=== PATIENT | male | born 1985 | race Caucasian/White ===

== ENCOUNTER 2024-10-26 15:28 | Emergency (ER) | payer BC, OTHER ==
--- OUTSIDE RECORDS SUMMARY | 2024-10-26 15:40 | XMS REPORT | Continuity of Care Document ---
Author Name Unknown Address [address] [place] [address] [address] [place] [address] [facility] Address [address] [facility] [address] [place] [address] Care Team Providers Care General Magistrate Name Role Phone PCP, PATIENT DOES NOT HAVE A Primary Care Physic emir STEVE Kaba Attending Clinician STEVE Pretty Attending Clinician Shankar Murray MD Attending Clinician [phone] Unknown, Attending Attending Clinician SHANKAR Brady Attending Clinician Unavailable Doctor Unassigned, [place] Attending Clinician U navailable Payers Payer Name Policy Type Policy Number Effective Date Expirati on Date Source Allergies, Adverse Reactions, Alerts Allergy Name Allergy Type Status Severity Reaction(s) Onset Date Inactive Date Treating Clinician Comments Source PENICILL IN DRUG INGREDI Active High Rash 2022-03 00:00: 00 [facility] Penicill in Propensi ty to adverse reaction s Active Rash 2022-03 00:00: 00 [facility] NO KNOWN ALLERGIE S Drug Class Active [facility] Social History Social Habit Start Date Stop Date Quantity Comments Source Sexual orientation U [facility] Sex Assigned At 1985 00:00:00 1985 00:00:00 [facility] Smoking Status Start Date Stop Date Source Tobacco smoking consumption unknown [facility] Immunizations Ordered Immunization Name Filled Immunization Name Date Status Comments Source SARS-COV-2 COVID-19 PFIZER VACCINE Unknown Completed [facility] SARS-COV-2 COVID-19 PFIZER VACCINE Unknown Completed [facility] SARS-COV-2 COVID-19 PFIZER VACCINE Unknown Completed [facility] Vital Signs Vital Name Observation Time Observation Value Comments S ource Systolic blood pressure 2023-03-10 22:26:00 134 mm[Hg] [facility] Diastolic blood pressure 2023-03-10 22:26:00 84 mm[Hg] [facility] Heart rate 2023-03-10 22:25:00 [facility] Body temperature 2023-03-10 22:25:00 36.89 Carissa [facility] Respiratory rate 2023-03-10 22:25:00 20 /min [facility] Body height 2023-03-10 22:25:00 175.3 cm [facility] Body weight 2023-03-10 22:25:00 64.955 kg [facility] BMI 2023-03-10 22:25:00 21.15 kg/m2 [facility] Oxygen saturation in Arterial blood by Pulse oximetry 2023-03-10 22:25:00 98 /min [facility] Procedures Procedure Date / Time Performed Performing Clinicia n Source XR HAND 3+ VW RIGHT 2023-03-10 22:52:20 Shankar Agudelo [facility] ASSIGNMENT OF BENEFITS 2023-03-10 22:14:52 Docto r Unassigned, [place] [facility] Encounters Start Date/Time End Date/Time Encounter Type Admission Type Attending Clinicians Care Facility Care Department Encounter ID Source 2023-03-10 16:39:35 2023-03-10 23:59:00 Hospital Encounter Shankar Agudelo [facility] [id number] [facility] 2023-03-10 16:10:00 2023-03-10 16:50:31 Urgent Care Shankar Agudelo, Attending [facility] [id number] [facility] 2023-03-10 16:10:00 2023-03-10 16:50:31 Outpatient R SHANKAR AGUDELO [facility] [id number] [facility] 2023-03-10 00:00:00 2023-03-10 00:00:00 Orders Only Doctor Unassigned, [place] [facility] [id number] [facility] Notes Date/Time Note Provider Source 2023-03-10 16:10:00 Addended by: SHANKAR AGUDELO MD on: 03/11/2023 11:57 AM Modules accepted: Orders [facility]
[2024-10-26] MEDS ORDERED: LORazepam 2 MG/ML VIAL ONE (15:55)
[2024-10-26] MEDS ORDERED: NA CHLORIDE 0.9% 1,000 ML ONE (15:56)
[2024-10-26 15:58] LABS: Absolute Lymphocytes (CBC) 1.2 K/uL (0.7-4.9); Hematocrit 43.4 % (39.6-49.0); Hemoglobin 15.0 g/dL (13.6-17.9); MCH 32.4 pg (27.0-35.0); MCHC 34.5 g/dL (32.0-36.0); MCV 93.9 fL (80-100); MPV 8.5 fL (7.6-11.3); Nucleated RBC Absolute Count 0.0 (0-0); Nucleated Red Blood Cells % 0.1 % (0-0); RBC Red Blood Cell Count 4.62 M/uL (4.33-5.43); White Blood Count 6.40 thou/uL (4.3-10.9)
[2024-10-26 16:16] LABS: ALT/SGPT 33.0 U/L (16-61); AST/SGOT 31.0 U/L (15-37); Alkaline Phosphatase 68.0 U/L (45-117); Anion Gap 15.4 mEq/L (5.0-15.0); BUN Blood Urea Nitrogen 18.0 mg/dL (7-18); Glucose Level 130.0 mg/dL (74-106); Potassium 3.4 mEq/L (3.5-5.1)
[2024-10-26 16:17] LABS: Albumin 3.9 g/dL (3.4-5.0); Albumin/Globulin Ratio 1.2 (1.1-1.8); Globulin 3.2 g/dL (2.3-3.5)
--- NOTE | 2024-10-26 16:35 | EDPHYS ---
Physician Documentation [facility] Name: Fede Little Age: 39 yrs Sex: Male : 1985 Arrival Date: 10/26/2024 Time: 15:28 Bed 15 Private MD: ED Physician Dawson Bai HPI: 10/26 16:34 This 39 yrs old Male presents to ER via EMS with complaints of Heat Exposure. 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 Patient states he began having some cramps, then issues with breathing. EMS notes patient was sweating, breathing rapidly, with carpal spasms on their arrival. Heart rate was found to be 166 with a blood pressure 170/106. Patient's glucose was found to be 158 with a temperature of 98. EMS administered 700 mL of normal saline. On evaluation patient denies pain. Patient denies any alleviating or inciting factors.. Historical: - Allergies: 15:49 No Known Allergies; me1 - Home Meds: 15:49 None [Active]; me1 - PMHx: 15:49 None; me1 - PSHx: 15:49 None; me1 - Immunization history:: Adult Immunizations up to date. - Infectious Disease History:: Denies. - Social history:: Smoking status: Patient denies any tobacco usage or history of. ROS: 16:34 Constitutional: Negative for fever, and chills. Cardiovascular: Negative for chest ms3 pain, and palpitations. Respiratory: Negative for shortness of breath, cough, wheezing, and pleuritic chest pain, Abdomen/GI: Negative for abdominal pain, nausea, vomiting, diarrhea, and constipation, 16:34 MS/extremity: Positive for Carpal spasms, 16:34 Skin: Positive for diaphoresis, Exam: 16:34 Constitutional: This is a well developed, well nourished patient who is awake, alert, ms3 and in no acute distress. Cardiovascular: Regular rate and rhythm with a normal S1 and S2. No gallops, murmurs, or rubs. Normal PMI, no JVD. No pulse deficits. Respiratory: Lungs have equal breath sounds bilaterally, clear to auscultation and percussion. No rales, rhonchi or wheezes noted. No increased work of breathing, no retractions or nasal flaring. Abdomen/GI: Soft, non-tender, with normal bowel sounds. No distension or tympany. No guarding or rebound. No evidence of tenderness throughout. 16:34 Neuro: Awake and alert, GCS 15, oriented to person, place, time, and situation. Cranial nerves II-XII grossly intact. Motor strength 5/5 in all extremities. Sensory grossly intact. Cerebellar exam normal. Normal gait. 16:34 Musculoskeletal/extremity: Carpal spasm present in right hand. 16:34 Skin: Appearance: diaphoresis is noted, Vital Signs: 15:40 BP 131 / 84; Pulse 104; Resp 19; Temp 98.3; Pulse Ox 100% ; Weight 68.04 kg; Height 5 me1 ft. 6 in. ; Pain 0/10; 16:00 BP 120 / 96; Pulse 99; Resp 16; Pulse Ox 100% ; me1 15:40 Body Mass Index 24.21 (68.04 kg, 167.64 cm) me1 15:40 Pain Scale: Adult me1 MDM: 15:39 Medical Screening Exam initiated ms3 16:34 Differential Diagnosis Hypokalemia versus hypocalcemia versus heat exhaustion versus ms3 anxiety. Data reviewed: vital signs, nurses notes, lab test result(s), and as a result, I will discharge patient. I considered the following discharge prescriptions or medication management in the emergency department Medications were administered in the Emergency Department. See MAR. Counseling: I had a detailed discussion with the patient and/or guardian regarding the historical points, exam findings, and any diagnostic results supporting the discharge/admit diagnosis, lab results, the need for outpatient follow up, to return to the emergency department if symptoms worsen or persist or if there are any questions or concerns that arise at home. Special discussion: I discussed with the patient/guardian in detail that at this point there is no indication for admission to the hospital. It is understood, however, that if the symptoms persist or worsen the patient needs to return immediately for re-evaluation. ED course: Discussed possible dehydration apparent and elevated creatinine on lab with the patient. Patient states he typically takes 5 bottles of water to last him the entire day. Discussed drinking substances with electrolytes and increasing fluid intake with patient. Patient understands and agrees with plan. All questions were answered. Return precautions discussed include worsening symptoms, or any other concerns. Patient to follow-up with primary care physician in 2 to 3 days.. 10/26 15:40 Order name: CBC with Diff; Complete Time: 16:19 ms3 10/26 15:40 Order name: CMP; Complete Time: 16:19 ms3 10/26 15:40 Order name: CK; Complete Time: 16:19 ms3 10/26 15:40 Order name: IV; Complete Time: 15:54 ms3 Administered Medications: 15:59 Drug: NS 0.9% IV 1000 ml IV at 1 bolus Per protocol; to be given as a bolus over 60 me1 minutes Route: IV; Rate: 1 bolus; Site: left antecubital; 16:48 Follow up: Response: No adverse reaction; IV Status: Completed infusion; IV Intake: me1 1000ml 15:59 Drug: Ativan IVP 1 mg IVP once Route: IVP; Site: left antecubital; me1 16:29 Follow up: Response: No adverse reaction; Anxiety decreased me1 Disposition Summary: 10/26/24 16:34 Discharge Ordered Notes: Location: Home ms3 Condition: Stable ms3 Diagnosis - Dehydration ms3 - Elevated blood pressure ms3 Followup: ms3 - With: Cisco Mccloud DO - When: 2 - 3 days - Reason: Recheck today's complaints Forms: - Medication Reconciliation Form ms3 - Antibiotic Education ms3 - Prescription Opioid Use ms3 - Patient Portal Instructions ms3 - Leadership Thank You Letter ms3 Signatures: Dispatcher [employer] Dawson Moura DO DO ms3 Carine Hammond, RN RN me1
--- NOTE | 2024-10-26 16:35 | ER ---
Nurse's Notes [facility] Name: Fede Little Age: 39 yrs Sex: Male : 1985 Arrival Date: 10/26/2024 Time: 15:28 Bed 15 Private MD: Diagnosis: Dehydration;Elevated blood pressure Presentation: 10/26 15:40 Chief complaint: EMS states: toned out for heat exhaustion. 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 On EMS arrival patient was tachypneic, with muscle cramps, anxious, elevated BP and tachycardic. 18 g LAC, administered 1 liter of NS and put some ice packs on patient. Coronavirus screen: At this time, the client does not indicate any symptoms associated with coronavirus-19. Ebola Screen: No symptoms or risks identified at this time. Initial Sepsis Screen: Does the patient meet any 2 criteria? No. Patient's initial sepsis screen is negative. Does the patient have a suspected source of infection? No. Patient's initial sepsis screen is negative. Risk Assessment: Do you want to hurt yourself or someone else? Patient reports no desire to harm self or others. Onset of symptoms was October 26, 2024 at 14:30. 15:40 Method Of Arrival: EMS: [place] [id number] 15:40 Acuity: SEBASTI[place]N 3 sd1 Triage Assessment: 15:49 General: Appears uncomfortable, well groomed, well developed, well nourished, Behavior sd1 is cooperative, appropriate for age, anxious. Pain: Denies pain. EENT: No signs and/or symptoms were reported regarding the EENT system. Neuro: Level of Consciousness is awake, alert, obeys commands, Oriented to person, place, time, situation, Appropriate for age. Cardiovascular: Patient's skin is warm and dry. Respiratory: Airway is patent Respiratory effort is even, unlabored, Respiratory pattern is regular, symmetrical. GI: No signs and/or symptoms were reported involving the gastrointestinal system. : No signs and/or symptoms were reported regarding the genitourinary system. Derm: Skin is intact, is healthy with good turgor, Skin is pink, warm \T\ dry. Musculoskeletal: Reports muscle cramping. Historical: - Allergies: 15:49 No Known Allergies; me1 - Home Meds: 15:49 None [Active]; me1 - PMHx: 15:49 None; me1 - PSHx: 15:49 None; me1 - Immunization history:: Adult Immunizations up to date. - Infectious Disease History:: Denies. - Social history:: Smoking status: Patient denies any tobacco usage or history of. Screenin:53 [facility] ED Fall Risk Assessment (Adult) History of falling in the last 3 months, sd1 including since admission No falls in past 3 months (0 pts) Confusion or Disorientation No (0 pts) Intoxicated or Sedated No (0 pts) Impaired Gait No (0 pts) Mobility Assist Device Used No (0 pt) Altered Elimination No (0 pt) Score/Fall Risk Level 0 - 2 = Low Risk Maintained a safe environment, Provided non-skid footwear, Hourly rounding (assess needs \T\ fall precautionary measures) done. Abuse screen: Denies threats or abuse. Nutritional screening: No deficits noted. Tuberculosis screening: No symptoms or risk factors identified. Assessment: 15:53 Reassessment: See triage assessment. me1 Vital Signs: 15:40 BP 131 / 84; Pulse 104; Resp 19; Temp 98.3; Pulse Ox 100% ; Weight 68.04 kg; Height 5 me1 ft. 6 in. ; Pain 0/10; 16:00 BP 120 / 96; Pulse 99; Resp 16; Pulse Ox 100% ; me1 15:40 Body Mass Index 24.21 (68.04 kg, 167.64 cm) me1 15:40 Pain Scale: Adult sd1 ED Course: 15:38 Patient arrived in ED. me1 15:39 Dawson Bai DO is Attending Physician. ms3 15:49 Triage completed. me1 15:49 Arm band placed on Patient placed in an exam room. me1 15:53 Patient has correct armband on for positive identification. Bed in low position. Call [facility] light in reach. Side rails up X2. Provided Education on: POC. Verbalized understanding.. Client placed on continuous cardiac and pulse oximetry monitoring. NIBP monitoring applied. front desk monitor on. Pulse ox on. NIBP on. 15:53 No provider procedures requiring assistance completed. Maintain EMS IV. Dressing sd1 intact. Good blood return noted. Site clean \T\ dry. Gauge \T\ site: 18g LAC. Flushed with 10 mL NS. 15:54 CK Sent. rk3 15:54 CMP Sent. rk3 15:54 CBC with Diff Sent. rk3 16:29 Carine Hammond, RN is Primary Nurse. me1 16:34 Cisco Mccloud DO is Referral Physician. ms3 16:47 IV discontinued, intact, bleeding controlled, No redness/swelling at site. Pressure me1 dressing applied. Administered Medications: 15:59 Drug: NS 0.9% IV 1000 ml IV at 1 bolus Per protocol; to be given as a bolus over 60 me1 minutes Route: IV; Rate: 1 bolus; Site: left antecubital; 16:48 Follow up: Response: No adverse reaction; IV Status: Completed infusion; IV Intake: me1 1000ml 15:59 Drug: Ativan IVP 1 mg IVP once Route: IVP; Site: left antecubital; me1 16:29 Follow up: Response: No adverse reaction; Anxiety decreased me1 Medication: 15:53 VIS not applicable for this client. me1 Intake: 16:48 IV: 1000ml; Total: 1000ml. me1 Outcome: 16:34 Discharge ordered by MD. ms3 16:47 Discharged to home ambulatory, me1 16:47 Condition: stable 16:47 Discharge instructions given to patient, Instructed on discharge instructions, follow up and referral plans. Demonstrated understanding of instructions, follow-up care, 16:47 Patient left the ED. me1 Signatures: Dawson Bai DO DO ms3 Carine Hammond, RN RN me1 Fabi Hallman rk3
[2024-10-26 22:53] VITALS: TEMP 98.3; O2SAT 100
[2024-10-26 22:55] VITALS: BP 120/96
== END 2024-10-26 16:47 | disposition home or self-care (01) ==
LOC: ER 15:28
DX: E86.0 Dehydration (principal); R03.0 Elevated blood-pressure reading, without diagnosis of hypertension
CPT/HCPCS: 96361; 85025; 36415; 82550; 80053; 96374; 99285; J7030